=== PATIENT | male | born 2000 | race Hispanic/Latino ===

== ENCOUNTER 2019-03-16 16:06 | Emergency (ER) | payer SELFPAY ==
[2019-03-16 16:48] LABS: ALT (SGPT) 157 U/L (8-55); AST (SGOT) 103 U/L (10-45); Alkaline Phosphatase 103 U/L (Less than 750); Anion Gap 28 mmol/L (10-20); BUN (Urea Nitrogen) 19 mg/dL (8.4-21.0); Bilirubin, Total 0.9 mg/dL (0.2-1.2); CK (CPK) 432 U/L (30-200); Calc. Creatinine Clearance 0 mL/min (70-130); Carbon Dioxide 21 mmol/L (22-29); Chloride 97 mmol/L (98-107); Estimated GFR-MDRD 44; Glucose 109 mg/dL (70-105); Potassium 3.7 mmol/L (3.5-5.1); Protein, Total 10.4 g/dL (6.0-8.3); Sodium 142 mmol/L (136-145)
[2019-03-16 16:54] LABS: Albumin Greater than 6.2 g/dL (3.5-5.0); Calcium 12.7 mg/dL (7.8-10.44); Globulin 4.2 g/dL (2.4-3.5)
== END 2019-03-16 18:12 | disposition home or self-care (01) ==
LOC: BURERS 16:06
DX: E86.0 Dehydration (principal); F17.210 Nicotine dependence, cigarettes, uncomplicated
CPT/HCPCS: 80053; 82550; 96360

== ENCOUNTER 2020-03-13 12:46 | Emergency (ER) | payer SELFPAY ==
[2020-03-13] MEDS ORDERED: Acetaminophen 500 MG TAB ONE (13:02)
[2020-03-13] MEDS ORDERED: Acetaminophen 325 MG TAB ONE (13:02)
[2020-03-13 13:08] LABS: #Basophils 0.1 thou/uL (0.0-0.2); #Lymphocytes 2.4 thou/uL (1.20-3.40); #Monocytes 0.7 thou/uL (0.11-0.59); #Neutrophils 8.4 thou/uL (1.40-6.50); %Eosinophils 0.1 % (0.0-10.0); %Lymphocytes 20.8 % (28.0-48.0); %Monocytes 5.8 % (0.0-4.0); %Neutrophils 72.3 % (31.0-61.0); Hemoglobin 16.1 g/dL (14.0-18.0); Mean Corpuscular HGB CONC 32.8 g/dL (32.0-36.0); Mean Corpuscular Hemoglobin 30.9 pg (25.0-35.0); Mean Corpuscular Volume 94.2 fL (78.0-98.0); Platelet Count 216 thou/uL (130-400); RBC Distribution Width 11.8 % (11.5-14.5); Red Blood Cell (RBC) Count 5.22 mill/uL (4.00-5.20); White Blood Cell (WBC) Count 11.6 thou/uL (4.8-10.8)
[2020-03-13 13:17] LABS: Anion Gap 19 mmol/L (10-20); BUN (Urea Nitrogen) 15 mg/dL (8.9-20.6); CK (CPK) 338 U/L (30-200); Calc. Creatinine Clearance 0 mL/min (70-130); Calcium 10.9 mg/dL (7.8-10.44); Carbon Dioxide 22 mmol/L (22-29); Chloride 102 mmol/L (98-107); Estimated GFR-MDRD 79; Glucose 114 mg/dL (70-105); Potassium 3.2 mmol/L (3.5-5.1); Sodium 140 mmol/L (136-145)
[2020-03-13] MEDS ORDERED: Ondansetron PF 4 MG/2 ML Vial ONE (13:30)
--- NOTE | 2020-03-13 14:07 | CT ---
CT OF THE BRAIN WITHOUT CONTRAST: 03/13/20 The ventricles are normal in size with no shift. No intracranial bleeding, mass, or sign of acute str diane was found. Mcintosh/white distinction is good. No edema was seen. The visible paranasal sinuses and m astoid air cells are clear. The skull is normal in appearance. IMPRESSION: No acute intracranial findings. Preliminary report called to Jase in ER at 1357 on 03/13/20. POS: HOME
== END 2020-03-13 14:04 | disposition home or self-care (01) ==
LOC: BURERS 12:46
DX: R55 Syncope and collapse (principal); F17.210 Nicotine dependence, cigarettes, uncomplicated
CPT/HCPCS: 70450; 80048; 82550; 85025; 93005; 96374; J2405